=== PATIENT | male | born 1945 | race Caucasian/White ===

== ENCOUNTER → 2019-04-14 | Outpatient (CLI) | payer MEDICARE, SELFPAY ==
[2019-04-14 13:39] LABS: PTHIN 5.8 pg/mL (18.4-80.1)
== END | disposition home or self-care (01) ==
LOC: LABSPEC 12:49
PROVIDERS: PCP Family Medicine; Referring Provider Internal Medicine Hematology & Oncology; Visit Provider Internal Medicine Hematology & Oncology
DX: C15.5 Malignant neoplasm of lower third of esophagus (principal); E83.52 Hypercalcemia
CPT/HCPCS: 83970

== ENCOUNTER → 2019-05-25 09:26 | Outpatient (CLI) | payer MEDICARE, SELFPAY | PROVIDERS: PCP Family Medicine; Visit Provider Internal Medicine Hematology & Oncology | DX: C90.00 Multiple myeloma not having achieved remission (principal) | CPT/HCPCS: 84100 ==

== ENCOUNTER → 2019-05-26 09:13 | Outpatient (CLI) | payer MEDICARE, SELFPAY ==
[2019-05-26 09:29] LABS: Phosphorus 3.3 mg/dL (2.5-4.9)
[2019-05-26] MEDS: 0.9% NaCl Peripheral Flush Adult/Peds IV (10:13)
[2019-05-26 12:41] VITALS: BP 102/58; PULSE 75; RESP 16; TEMP 36.5
[2019-05-26 13:41] VITALS: BP 106/61; PULSE 73; RESP 18; TEMP 36.6; O2SAT 98
[2019-05-26 14:50] VITALS: BP 96/58; PULSE 74; RESP 16; TEMP 36.4; O2SAT 98
[2019-05-26 15:07] VITALS: BP 102/57; PULSE 72; RESP 18; TEMP 36.6; O2SAT 98
[2019-05-26 17:00] VITALS: BP 106/60; PULSE 71; RESP 16; TEMP 36.9; O2SAT 99
== END ==
PROVIDERS: PCP Family Medicine; Referring Provider Internal Medicine Hematology & Oncology; Visit Provider Internal Medicine Hematology & Oncology
DX: C90.10 Plasma cell leukemia not having achieved remission (principal); C90.00 Multiple myeloma not having achieved remission
CPT/HCPCS: 36430; 84100; 86850; 86900; 86901; 86920; 86922; J7040; P9016; A4216

== ENCOUNTER → 2019-06-19 14:45 | Outpatient (CLI) | payer MEDICARE, SELFPAY ==
[2019-06-19 15:06] LABS: Phosphorus 2.6 mg/dL (2.5-4.9)
== END ==
LOC: PR 14:46 → LABSPEC 14:57
PROVIDERS: Referring Provider Internal Medicine Hematology & Oncology; Visit Provider Internal Medicine Hematology & Oncology
DX: C90.00 Multiple myeloma not having achieved remission (principal)
CPT/HCPCS: 84100